=== PATIENT | male | born 1960 | race Caucasian/White ===

== ENCOUNTER 2022-10-22 14:04 | Observation (INO) | payer OTHER ==
[2022-10-22] MEDS ORDERED: LACTATED RINGERS SOLUTION 1000 ML INFUS.BAG IV ONE ×2 (15:07→18:49)
[2022-10-22] MEDS ORDERED: LORazepam 2 MG/ML SDV VIAL IVPUSH ONE (15:07)
[2022-10-22] MEDS ORDERED: FAMOTIDINE 20 MG/50 ML IVPB 20 MG/50 ML MG IVPB ONE ×2 (15:07→15:47)
[2022-10-22] MEDS ORDERED: METOCLOPRAMIDE HCL INJECTION 10 MG/2 ML VIAL IVPUSH ONE (15:08)
[2022-10-22] MEDS ORDERED: THIAMINE HCL 200 MG/2 ML VIAL IVPB ONE (15:22)
[2022-10-22] MEDS ORDERED: THIAMINE HCL 200 MG/2 ML VIAL ONE (15:47)
[2022-10-22] MEDS ORDERED: METOCLOPRAMIDE HCL INJECTION 10 MG/2 ML VIAL ONE (15:47)
[2022-10-22 16:05] LABS: BASO % 0.3 % (0-2.0); EOS % 0.1 % (0-4.5); HEMOGLOBIN 14.5 GM/dL (11.7-16.9); LYMPH % 19.2 % (8-40); MCH 34.6 pg (25.7-33.7); MCHC 35.4 g/dl (32.0-35.9); MEAN CELL VOLUME 97.9 fl (80-96); MEAN PLT VOLUME 8.3 fl (7.5-11.1); MONO % 6.9 % (3.8-10.2); NEUT % 73.5 % (42.8-82.8); PLATELET COUNT 255 10^3/uL (134-434); RBC 4.19 M/mm3 (4.00-5.60); WHITE BLOOD COUNT 9.2 K/mm3 (4.0-10.0)
[2022-10-22 16:21] LABS: INR 1.02 (0.83-1.09); PROTHROMBIN TIME (PATIENT) 11.8 SEC (9.7-13.0)
[2022-10-22 16:23] LABS: POTASSIUM 3.7 mmol/L (3.5-5.1)
[2022-10-22 16:24] LABS: CALCIUM 11.2 mg/dL (8.5-10.1)
[2022-10-22 16:25] LABS: ALBUMIN 3.8 g/dl (3.4-5.0); BLOOD UREA NITROGEN 14.6 mg/dL (7-18); MAGNESIUM 1.6 mg/dL (1.8-2.4)
[2022-10-22 16:30] LABS: BILIRUBIN,TOTAL 0.5 mg/dL (0.2-1); TOT PROT 6.6 g/dl (6.4-8.2)
[2022-10-22] MEDS ORDERED: LORazepam 2 MG TABLET PO SCH (17:00)
[2022-10-22] MEDS ORDERED: MAGNESIUM SULF 50% (8.12 MEQ/2 ML-1 GM VIAL) IVPB ONE (17:07)
[2022-10-22] MEDS ORDERED: MAGNESIUM SULFATE IN WATER 2 GM/50 ML IVPB IVPB ONE (17:31)
[2022-10-22 18:07] LABS: PHOSPHOROUS 3.8 mg/dL (2.5-4.9)
[2022-10-22 20:11] LABS: URINE APPEARANCE CLEAR; URINE BILIRUBIN NEGATIVE (NEGATIVE); URINE COLOR YELLOW; URINE GLUCOSE (UA) NEGATIVE (NEGATIVE); URINE KETONE NEGATIVE (NEGATIVE); URINE LEUK ESTERASE NEGATIVE (NEGATIVE); URINE NITRITE NEGATIVE (NEGATIVE); URINE PROTEIN NEGATIVE (NEGATIVE)
[2022-10-22] MEDS ORDERED: LORazepam 1 MG TABLET PO PRN (20:45)
[2022-10-22] MEDS ORDERED: THIAMINE HCL 100 MG TABLET (FP) PO SCH (21:15)
[2022-10-22] MEDS ORDERED: FOLIC ACID INJECTION - 1 MG, THIAMINE HCL 100 MG, MULTIVIT INJECTION ADULT 10 ML in SOD... IVPB ONE (22:00)
[2022-10-22 22:14] LABS: PHOSPHOROUS 3.4 mg/dL (2.5-4.9)
[2022-10-22] MEDS ORDERED: NICOTINE 14 MG/24 HOURS TOPICAL PATCH TD ONE (22:51)
[2022-10-22] MEDS ORDERED: LORazepam 1 MG TABLET ONE (22:56)
[2022-10-22] MEDS: LORazepam 1 MG TABLET PO SCH (23:08)
[2022-10-22] MEDS: NICOTINE 14 MG/24 HOURS TOPICAL PATCH TD SCH (23:08)
[2022-10-23] MEDS: SODIUM CHLORIDE 1,000 ML IV SCH ×2 (00:14→22:44)
[2022-10-23] MEDS: LORazepam 1 MG TABLET PO SCH ×4 (05:11→23:04)
[2022-10-23 08:58] LABS: INR 1.01 (0.83-1.09); PROTHROMBIN TIME (PATIENT) 11.7 SEC (9.7-13.0)
[2022-10-23 09:01] LABS: BASO % 0.9 % (0-2.0); EOS % 0.5 % (0-4.5); HEMATOCRIT 32.3 % (35.4-49); HEMOGLOBIN 11.3 GM/dL (11.7-16.9); LYMPH % 27.2 % (8-40); MCH 34.9 pg (25.7-33.7); MEAN CELL VOLUME 99.8 fl (80-96); MEAN PLT VOLUME 8.7 fl (7.5-11.1); MONO % 9.1 % (3.8-10.2); NEUT % 62.3 % (42.8-82.8); PLATELET COUNT 204 10^3/uL (134-434); RBC 3.23 M/mm3 (4.00-5.60); RDW 14.7 % (11.9-15.9); WHITE BLOOD COUNT 6.2 K/mm3 (4.0-10.0)
[2022-10-23 09:16] LABS: POTASSIUM 3.3 mmol/L (3.5-5.1)
[2022-10-23 09:26] LABS: BLOOD UREA NITROGEN 13.4 mg/dL (7-18)
[2022-10-23 09:29] LABS: CREATININE 0.8 mg/dL (0.55-1.3); PHOSPHOROUS 3.8 mg/dL (2.5-4.9)
[2022-10-23 09:31] LABS: BILIRUBIN,TOTAL 0.6 mg/dL (0.2-1); TOT PROT 4.7 g/dl (6.4-8.2)
[2022-10-23 09:36] LABS: ALBUMIN 2.9 g/dl (3.4-5.0)
[2022-10-23] MEDS: THIAMINE HCL 100 MG TABLET (FP) PO SCH (10:05)
[2022-10-23] MEDS: NICOTINE 14 MG/24 HOURS TOPICAL PATCH TD SCH (10:06)
[2022-10-23] MEDS: FOLIC ACID 1 MG TABLET (FP) PO SCH (10:06)
[2022-10-23] MEDS: ENOXAPARIN NA (PORCINE) 40 MG/0.4 ML DISP.SYRIN SQ SCH (10:06)
[2022-10-24] MEDS: LORazepam 1 MG TABLET PO SCH ×4 (05:10→22:18)
[2022-10-24] MEDS: SODIUM CHLORIDE 1,000 ML IV SCH (05:28)
[2022-10-24 08:36] LABS: RETICULOCYTES 0.93 % (0.5-1.5)
[2022-10-24] MEDS: FOLIC ACID 1 MG TABLET (FP) PO SCH (10:00)
[2022-10-24] MEDS: THIAMINE HCL 100 MG TABLET (FP) PO SCH (10:00)
[2022-10-24] MEDS: ENOXAPARIN NA (PORCINE) 40 MG/0.4 ML DISP.SYRIN SQ SCH (10:00)
[2022-10-24] MEDS: NICOTINE 14 MG/24 HOURS TOPICAL PATCH TD SCH (10:00)
[2022-10-24 10:10] LABS: HEMATOCRIT 31.8 % (35.4-49); HEMOGLOBIN 10.8 GM/dL (11.7-16.9); MCH 33.9 pg (25.7-33.7); MCHC 34.1 g/dl (32.0-35.9); MEAN CELL VOLUME 99.4 fl (80-96); MEAN PLT VOLUME 8.1 fl (7.5-11.1); PLATELET COUNT 202 10^3/uL (134-434); RDW 14.7 % (11.9-15.9); WHITE BLOOD COUNT 6.4 K/mm3 (4.0-10.0)
[2022-10-24 10:17] LABS: POTASSIUM 3.4 mmol/L (3.5-5.1)
[2022-10-24 10:21] LABS: CALCIUM 9.1 mg/dL (8.5-10.1)
[2022-10-24 10:22] LABS: ALBUMIN 2.7 g/dl (3.4-5.0); BLOOD UREA NITROGEN 15.1 mg/dL (7-18)
[2022-10-24 10:25] LABS: CREATININE 0.7 mg/dL (0.55-1.3)
[2022-10-24 10:26] LABS: BILIRUBIN,TOTAL 0.4 mg/dL (0.2-1)
[2022-10-24 10:27] LABS: TOT PROT 4.7 g/dl (6.4-8.2)
[2022-10-24 16:29] VITALS: BMI 20.2
[2022-10-25] MEDS ORDERED: LORazepam 0.5 MG TABLET PO PRN
[2022-10-25] MEDS: SODIUM CHLORIDE 1,000 ML IV SCH ×3 (02:30→22:00)
[2022-10-25] MEDS: LORazepam 0.5 MG TABLET PO SCH ×4 (06:12→22:45)
[2022-10-25 09:39] LABS: BASO % 0.7 % (0-2.0); EOS % 0.8 % (0-4.5); HEMATOCRIT 31.3 % (35.4-49); HEMOGLOBIN 10.6 GM/dL (11.7-16.9); LYMPH % 20.3 % (8-40); MCH 33.8 pg (25.7-33.7); MCHC 33.8 g/dl (32.0-35.9); MEAN CELL VOLUME 100.1 fl (80-96); MEAN PLT VOLUME 7.8 fl (7.5-11.1); MONO % 11.7 % (3.8-10.2); NEUT % 66.5 % (42.8-82.8); PLATELET COUNT 211 10^3/uL (134-434); RBC 3.13 M/mm3 (4.00-5.60); RDW 14.5 % (11.9-15.9); WHITE BLOOD COUNT 6.2 K/mm3 (4.0-10.0)
[2022-10-25 10:00] LABS: POTASSIUM 3.5 mmol/L (3.5-5.1)
[2022-10-25 10:02] LABS: CALCIUM 8.7 mg/dL (8.5-10.1)
[2022-10-25 10:03] LABS: ALBUMIN 2.6 g/dl (3.4-5.0); BLOOD UREA NITROGEN 12.1 mg/dL (7-18); MAGNESIUM 1.7 mg/dL (1.8-2.4)
[2022-10-25 10:05] LABS: CREATININE 0.7 mg/dL (0.55-1.3)
[2022-10-25 10:06] LABS: BILIRUBIN,TOTAL 0.2 mg/dL (0.2-1); PHOSPHOROUS 3.7 mg/dL (2.5-4.9)
[2022-10-25 10:07] LABS: TOT PROT 4.4 g/dl (6.4-8.2)
[2022-10-25] MEDS: NICOTINE 14 MG/24 HOURS TOPICAL PATCH TD SCH (10:39)
[2022-10-25] MEDS: ENOXAPARIN NA (PORCINE) 40 MG/0.4 ML DISP.SYRIN SQ SCH (10:39)
[2022-10-25] MEDS: FOLIC ACID 1 MG TABLET (FP) PO SCH (10:40)
[2022-10-25] MEDS: THIAMINE HCL 100 MG TABLET (FP) PO SCH (10:40)
[2022-10-25 16:10] LABS: FREE KAPPA,SERUM 21.2 mg/L (3.3-19.4)
[2022-10-26] MEDS ORDERED: LORazepam 0.5 MG TABLET PO ONE (05:00)
[2022-10-26] MEDS: SODIUM CHLORIDE 1,000 ML IV SCH (06:40)
[2022-10-26] MEDS: THIAMINE HCL 100 MG TABLET (FP) PO SCH (09:38)
[2022-10-26] MEDS: NICOTINE 14 MG/24 HOURS TOPICAL PATCH TD SCH (09:38)
[2022-10-26] MEDS: ENOXAPARIN NA (PORCINE) 40 MG/0.4 ML DISP.SYRIN SQ SCH (09:38)
[2022-10-26] MEDS: FOLIC ACID 1 MG TABLET (FP) PO SCH (09:52)
[2022-10-26] MEDS: LORazepam 0.5 MG TABLET PO PRN ×2 (10:46→22:36)
[2022-10-27] MEDS: SODIUM CHLORIDE 1,000 ML IV SCH ×3 (06:10→22:56)
[2022-10-27] MEDS: NICOTINE 14 MG/24 HOURS TOPICAL PATCH TD SCH (10:37)
[2022-10-27] MEDS: ENOXAPARIN NA (PORCINE) 40 MG/0.4 ML DISP.SYRIN SQ SCH (10:37)
[2022-10-27] MEDS: FOLIC ACID 1 MG TABLET (FP) PO SCH (10:38)
[2022-10-27] MEDS: THIAMINE HCL 100 MG TABLET (FP) PO SCH (10:38)
[2022-10-27 11:17] VITALS: RESP 18
[2022-10-27] MEDS: LORazepam 0.5 MG TABLET PO PRN (21:04)
[2022-10-28] MEDS: SODIUM CHLORIDE 1,000 ML IV SCH (06:58)
[2022-10-28] MEDS: THIAMINE HCL 100 MG TABLET (FP) PO SCH (09:58)
[2022-10-28] MEDS: FOLIC ACID 1 MG TABLET (FP) PO SCH (09:58)
[2022-10-28] MEDS: NICOTINE 14 MG/24 HOURS TOPICAL PATCH TD SCH (09:59)
[2022-10-28] MEDS: ENOXAPARIN NA (PORCINE) 40 MG/0.4 ML DISP.SYRIN SQ SCH (09:59)
[2022-10-28] MEDS ORDERED: LORazepam 0.5 MG TABLET PO PRN (11:31)
[2022-10-28 13:27] LABS: BASO % 0.9 % (0-2.0); EOS % 1.1 % (0-4.5); HEMOGLOBIN 10.6 GM/dL (11.7-16.9); LYMPH % 19.8 % (8-40); MCH 34.3 pg (25.7-33.7); MCHC 34.2 g/dl (32.0-35.9); MEAN CELL VOLUME 100.3 fl (80-96); MEAN PLT VOLUME 7.6 fl (7.5-11.1); MONO % 11.5 % (3.8-10.2); NEUT % 66.7 % (42.8-82.8); PLATELET COUNT 243 10^3/uL (134-434); RBC 3.09 M/mm3 (4.00-5.60); RDW 14.7 % (11.9-15.9); WHITE BLOOD COUNT 6.9 K/mm3 (4.0-10.0)
[2022-10-28 14:03] LABS: POTASSIUM 3.7 mmol/L (3.5-5.1)
[2022-10-28 14:05] LABS: ALBUMIN 2.7 g/dl (3.4-5.0)
[2022-10-28 14:07] LABS: CALCIUM 8.8 mg/dL (8.5-10.1)
[2022-10-28 14:08] LABS: BLOOD UREA NITROGEN 10.4 mg/dL (7-18); MAGNESIUM 1.5 mg/dL (1.8-2.4)
[2022-10-28 14:10] LABS: PHOSPHOROUS 3.7 mg/dL (2.5-4.9)
[2022-10-28 14:11] LABS: CREATININE 0.6 mg/dL (0.55-1.3)
[2022-10-28 14:12] LABS: BILIRUBIN,TOTAL 0.7 mg/dL (0.2-1); TOT PROT 4.8 g/dl (6.4-8.2)
[2022-10-28 15:55] VITALS: BP 121/76; PULSE 78; TEMP 97.6
== END 2022-10-28 16:26 | disposition other institution (70) ==
LOC: JER 14:04 → JERBED 18:59 → UNDOADMOB 18:59 → INTOOBSV 18:59 → J5S 10-23 02:32 → JERBED 10-23 02:32 → J5S 10-23 09:44 → JERBED 10-23 09:44
PROVIDERS: ADMIT Internal Medicine; ATTEND Internal Medicine
PROC: 3E0337Z Introduction of Electrolytic and Water Balance Substance into Peripheral Vein, Percutaneous Approach (ICD-10-PCS; principal; 2022-10-23)
PROC: 3E033NZ Introduction of Analgesics, Hypnotics, Sedatives into Peripheral Vein, Percutaneous Approach (ICD-10-PCS; 2022-10-23)
DX: F10.920 Alcohol use, unspecified with intoxication, uncomplicated (principal); R55 Syncope and collapse; Z86.73 Personal history of transient ischemic attack (TIA), and cerebral infarction without residual deficits; F17.210 Nicotine dependence, cigarettes, uncomplicated; G62.9 Polyneuropathy, unspecified; E83.52 Hypercalcemia; E46 Unspecified protein-calorie malnutrition
CPT/HCPCS: 36415; 71045-TC-FY; 74177-TC; 80053; 80307; 81003; 82607; 82728; 83540; 83550; 83615; 83690; 83735; 83883; 83970; 84100; 84153; 84155; 84165; 84439; 84443; 84484; 85025; 85027; 85045; 85610; 86704; 86708; 86803; 86850; 86900; 86901; 87086; 87340; 87517; 87635; 93005; 93010; 97116-GP; 97162-GP; 99285-25; G0378; Q9967